=== PATIENT | female | born 1965 | race Caucasian/White ===

== ENCOUNTER 2023-10-10 04:11 | Emergency (ER) | payer MEDICAID ==
[~2023-10-10] VITALS: Ht 157.5 cm; Wt 63.0 kg
[2023-10-10 04:18] VITALS: TEMP 97.8
[2023-10-10] MEDS ORDERED: ONDA-243 PO (04:42)
[2023-10-10] MEDS: normal saline 1000ml 1,000 ML IV ONE ×2 (05:03→06:13)
[2023-10-10] MEDS: ondansetron/PF 4mg/2ml inj IV ONE (05:26)
[2023-10-10 05:27] LABS: ALANINE AMINOTRANSFERASE 14 U/L (12-78); ALBUMIN 2.7 G/DL (3.4-5.0); ALBUMIN/GLOBULIN RATIO 0.6 (1.1-1.5); ALKALINE PHOSPHATASE 145 IU/L (46-116); ANION GAP 17 (8-16); ASPARTATE AMINO TRANSFERASE 14 U/L (10-37); BILIRUBIN,TOTAL 0.3 MG/DL (0.1-1.0); BLOOD UREA NITROGEN 34 MG/DL (7-18); BUN/CREATININE RATIO 11.8 (10.0-20.0); CALCIUM 8.6 MG/DL (8.5-10.1); CHLORIDE 103 MMOL/L (99-107); CREATININE 2.87 MG/DL (0.40-0.90); ETHANOL 209 MG/DL (<10); GLUCOSE 184 MG/DL (70-104); LIPASE 28 U/L (16-77); SODIUM 137 MMOL/L (135-145); TOTAL CARBON DIOXIDE 16.7 MMOL/L (24-32); TOTAL PROTEIN 7.6 G/DL (6.4-8.2); eCRCL 16 ML/MIN; eGFR 17 ML/MIN
[2023-10-10] MEDS: ketorolac trometh 30MG/ML vial 30 MG/ML VIAL IV ONE (07:04)
[2023-10-10 08:02] LABS: BASOPHILS % (AUTO) 0.4 % (0-1); EOSINOPHILS # (AUTO) 0.2 X10'3 (0-0.9); EOSINOPHILS % (AUTO) 2.4 % (0-6); HEMATOCRIT 27.3 % (35.0-45.0); HEMOGLOBIN 9.1 g/dl (12.0-16.0); LYMPHOCYTES # (AUTO) 1.3 X10'3 (1.1-4.8); LYMPHOCYTES % (AUTO) 13.5 % (21-51); MEAN CORPUSCULAR HEMOGLOBIN 28.7 PG (27.0-31.0); MEAN CORPUSCULAR HGB CONC 33.2 g/dL (33.0-36.5); MEAN CORPUSCULAR VOLUME 86.6 FL (78-98); MEAN PLATELET VOLUME 6.8 FL (7.4-10.4); MONOCYTES # (AUTO) 0.6 X10'3 (0-0.9); MONOCYTES % (AUTO) 5.7 % (2-12); NEUTROPHILS # (AUTO) 7.8 X10'3 (1.8-7.7); PLATELET COUNT 289 X10'3 (140-440); RED BLOOD COUNT 3.15 X10'6 (4.20-5.60); RED CELL DISTRIBUTION WIDTH 14.3 % (11.5-14.5)
[2023-10-10 09:15] VITALS: BP 148/74; PULSE 69; RESP 16; O2SAT 94
== END 2023-10-10 09:45 | disposition home or self-care (01) ==
LOC: ER 04:13
DX: R11.10 Vomiting, unspecified (principal); F10.129 Alcohol abuse with intoxication, unspecified
CPT/HCPCS: 36415; 80053; 80320; 83690; 85025; 96361; 96374; 96375; 99285; J1885; J2405; J7030